=== PATIENT | female | born 1980 | race Caucasian/White ===

== ENCOUNTER 2023-02-20 18:31 | Emergency (ER) | payer SELFPAY ==
[~2023-02-20] VITALS: Ht 167.6 cm; Wt 109.0 kg
[2023-02-20 18:45] VITALS: BP 109/77
== END 2023-02-20 20:36 | disposition left against medical advice (07) ==
LOC: ER 18:31
DX: M54.9 Dorsalgia, unspecified (principal); Z53.21 Procedure and treatment not carried out due to patient leaving prior to being seen by health care provider
CPT/HCPCS: 99281